=== PATIENT | male | born 1930 | race Caucasian/White ===

== ENCOUNTER 2018-05-13 09:37 | Observation (INO) | payer MEDICARE ==
--- NOTE | 2018-05-13 10:32 | ED ---
HPI Chest Pain - HPI Summary HPI Summary: This is scribe Cassie Abdias documenting for attending Tony Quezada MD. 87 year old M presenting to [facility] complains of two episodes of chest pain, each lasting one hour, described as an ache radiating to his left upper arm, once at 01:00 today and at 07:30 today. The patient rates the pain 1/10 in severity. Symptoms aggravated by nothing. Symptoms alleviated by nothing. Patient denies shortness of breath, nausea, and diaphoresis. Patient treated the pain with nitrox3 during the first episode, then was able to return to sleep. He woke up at 06:00, then pain returned at 07:30. Patient has cardiac hx. - History of Current Complaint Chief Complaint: EDChestPainROMI Time Seen by Provider: 05/13/18 10:00 Hx Obtained From: Patient Onset/Duration: Started Hours Ago - 01:00 today Timing: Intermittent, Lasting Hours - 1 Pain Intensity: 1 Pain Scale Used: 0-10 Numeric Chest Pain Radiates: Yes Chest Pain Radiates To:: Arm - left upper Character: Dull/Aching Aggravating Factor(s): Nothing Alleviating Factor(s): Nothing Associated Signs and Symptoms: Positive: Negative - shortness of breath, diaphoresis, nausea - Allergy/Home Medications Allergies/Adverse Reactions: Allergies Allergy/AdvReac Type Severity Reaction Status Date / Time cefazolin [From Anc] Allergy Rash Verified 05/13/18 09:42 Home Medications: Home Medications Aspirin EC TAB* [Ecotrin EC Low Dose 81 MG*] 81 mg PO QAM 05/13/18 [History Confirmed 05/13/18] C/Sourcherry/Celery/Grape Seed [Tart Foote Advanced] 1 cap PO QPM 05/13/18 [ History Confirmed 05/13/18] Cholecalciferol TAB* [Vitamin D TAB*] 1,000 unit PO QAM 05/13/18 [History Confirmed 05/13/18] Glucosam/Chond/Collagen/Hyalur [Glucosamine Chondroitin/C] 1 cap PO QPM [History Confirmed 05/13/18] LoraTADine TAB(NF) [Claritin 10 MG TAB(NF)] 10 mg PO QAM 05/13/18 [History Confirmed 05/13/18] Lovastatin(NF) [Mevacor(NF)] 20 mg PO QPM 05/13/18 [History Confirmed 05/13/18] Magnesium Oxide [Magnesium] 250 mg PO QAM 05/13/18 [History Confirmed 05/13/18] Multivitamins/Minerals TAB* [Theragran/minerals TAB*] 1 tab PO QPM 05/13/18 [ History Confirmed 05/13/18] Pantoprazole TAB (NF) [Protonix TAB (NF)] 40 mg PO QAM 05/13/18 [History Confirmed 05/13/18] Potassium 99 mg PO QAM 05/13/18 [History Confirmed 05/13/18] tiZANidine TAB* [Zanaflex TAB*] 2 mg PO QPM 05/13/18 [History Confirmed 05/13/18 ] PMH/Surg Hx/FS Hx/Imm Hx Previously Healthy: No Cardiovascular History: Reports: Hx Aneurysm - aortic, Hx Myocardial Infarction - in 2004, Other Cardiovascular Problems/Disorders - ascending aorta GI History: Reports: Hx Gastroesophageal Reflux Disease Sensory History: Reports: Hx Contacts or Glasses Opthamlomology History: Reports: Hx Contacts or Glasses - Surgical History Surgery Procedure, Year, and Place: Right knee replacement, hammer toe repair. cardiac stent x 2. - Immunization History Immunizations Up to Date: Yes Infectious Disease History: No Infectious Disease History: Denies: Traveled Outside the [place] in Last 30 Days - Family History Known Family History: Positive: Other - reviewed and non-contributory - Social History Alcohol Use: Weekly Hx Substance Use: No Substance Use Type: Reports: None Hx Tobacco Use: No Smoking Status (MU): Never Smoked Tobacco Review of Systems Negative: Skin Diaphoresis Positive: Chest Pain Negative: Shortness Of Breath Negative: Nausea All Other Systems Reviewed And Are Negative: Yes Physical Exam - Summary Physical Exam Summary: Appearance: The patient is well-nourished in no acute distress and in no acute pain. Skin: The skin is warm and dry and skin color reflects adequate perfusion. HEENT: The head is normocephalic and atraumatic. The pupils are equal and reactive. The conjunctivae are clear and without drainage. Nares are patent and without drainage. Mouth reveals moist mucous membranes and the throat is without erythema and exudate. The external ears are intact. The ear canals are patent and without drainage. The tympanic membranes are intact. Neck: The neck is supple with full range of motion and non-tender. There are no carotid bruits. There is no neck vein distension. Respiratory: Chest is non-tender. Lungs are clear to auscultation and breath sounds are symmetrical and equal. Cardiovascular: Heart is regular rate and rhythm. There is no murmur or rub auscultated. There is no peripheral edema and pulses are symmetrical and equal. Abdomen: The abdomen is soft and non-tender. There are normal bowel sounds heard in all four quadrants and there is no organomegaly palpated. Musculoskeletal: There is no back tenderness noted. Extremities are non-tender with full range of motion. There is good capillary refill. There is no peripheral edema or calf tenderness elicited. Neurological: Patient is alert and oriented to person, place and time. The patient has symmetrical motor strength in all four extremities. Cranial nerves are grossly intact. Deep tendon reflexes are symmetrical and equal in all four extremities. Psychiatric: The patient has an appropriate affect and does not exhibit any anxiety or depression. Triage Information Reviewed: Yes Vital Signs On Initial Exam: Initial Vitals Temp Pulse Resp BP Pulse Ox 98.8 F 58 16 143/97 95 05/13/18 09:38 05/13/18 09:38 05/13/18 09:38 05/13/18 09:38 05/13/18 09:38 Vital Signs Reviewed: Yes Diagnostics - Vital Signs Vital Signs Temp Pulse Resp BP Pulse Ox 05/13/18 09:38 98.8 F 58 16 143/97 95 - Laboratory Result Diagrams: 05/13/18 11:25 05/13/18 11:25 Lab Statement: Any lab studies that have been ordered have been reviewed, and results considered in the medical decision making process. - Radiology CXR Radiology Interpretation Completed By: Radiologist - NO ACTIVE CARDIOPULMONARY DISEASE. ED physician has reviewed this report. - CT Chest/Thorax CT Interpretation Completed By: Radiologist - 1. NO PULMONARY ARTERIAL FILLING DEFECT TO SUGGEST PULMONARY EMBOLISM. 2. 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 ED physician has reviewed this report. - EKG 0944 Cardiac Rate: Bradycardia - 54 BPM EKG Rhythm: Sinus Bradycardia EKG Interpretation: Horizontal axis. First degree block 1134 Cardiac Rate: Bradycardia - 56 BPM EKG Rhythm: Sinus Bradycardia EKG Interpretation: Horizontal axis. First degree block. Unchanged from earlier EKG 05/13/18 Chest Pain Course/Dx - Course Course Of Treatment: Mr. Gutierrez presented with intermittent episodes of chest pain. He has a history of stents for coronary artery disease as well as a known descending aortic aneurysm. He was worked up with troponin and EKG as well as other labs. These were all normal and a CTA of his chest was obtained to evaluate his aneurysm. There was no evidence for dissection or leaking and the hospitalist service was asked to evaluate him for continued chest pain. He had 2 more episodes of chest pain while in the department his EKG did not change. - Diagnoses Provider Diagnoses: Chest pain - Provider Notifications Discussed Care Of Patient With: Cody Hubbard Time Discussed With Above Provider: 13:35 Instructed by Provider To: Other - Dr. Hubbard, hospitalist, agrees to admit patient. Discharge - Sign-Out/Discharge Documenting (check all that apply): Patient Departure - Admit - Discharge Plan Condition: Stable Disposition: ADMITTED TO [facility] - Billing Disposition and Condition Condition: STABLE Disposition: Admitted to [facility]
--- NOTE | 2018-05-13 11:34 | RAD ---
HISTORY: CP, chest pain COMPARISONS: None VIEWS: 1: frontal portable view of the chest at 11:15 AM FINDINGS: LINES AND TUBES: None. CARDIOMEDIASTINAL SILHOUETTE: The cardiomediastinal silhouette is normal for portable technique. PLEURA: The costophrenic angles are sharp. No pleural abnormalities are noted. LUNG PARENCHYMA: The lungs are clear. ABDOMEN: The upper abdomen is clear. There is no subphrenic gas. BONES AND SOFT TISSUES: No bone or soft tissue abnormalities are noted. IMPRESSION: NO ACTIVE CARDIOPULMONARY DISEASE.
[2018-05-13 11:42] LABS: ABS Basophils 0 10^3/ul (0-0.2); ABS Eosinophils 0.1 10^3/ul (0-0.6); ABS Lymphocytes 1.4 10^3/ul (1.0-4.8); ABS Monocytes 0.4 10^3/ul (0-0.8); ABS Nucleated RBC 0 10^3/ul; Eosinophil % 2.5 % (0-6); Hematocrit 46 % (42-52); Hemoglobin 15.9 g/dl (14.0-18.0); Lymphocyte % 28.7 % (25-47); Mean Corpuscular HGB Conc 34 g/dl (31-36); Mean Corpuscular Hemoglobin 31 pg (27-31); Mean Corpuscular Volume 92 fL (80-94); Mean Platelet Volume 7.9 um3 (7.4-10.4); Nucleated Red Blood Cells % 0.1; Platelet Count 192 10^3/ul (150-450); Red Blood Count 5.05 10^6/ul (4.00-5.40); Red Cell Distribution Width 14 % (10.5-15); White Blood Count 4.9 10^3/ul (3.5-10.8)
[2018-05-13 11:52] LABS: INR 0.91 (0.77-1.02)
[2018-05-13 12:02] LABS: EGFR Non-African American 103.8 (>60)
[2018-05-13] MEDS ORDERED: Iohexol 350* (CONTRAST) 500 ML MDV IV ONE (13:10)
--- NOTE | 2018-05-13 13:27 | RAD ---
HISTORY: CP, chest pain COMPARISONS: None TECHNIQUE: Multiple contiguous axial CT scans of the chest were obtained after the administration of nonionic intravenous contrast, timed to the pulmonary arterial phase of contrast enhancement.. Coronal and sagittal multiplanar reformations are also submitted for review. FINDINGS: NECK AND THYROID: The lower neck and thyroid are unremarkable. CHEST WALL: There is no lower cervical, axillary, or supraclavicular lymphadenopathy by size criteria. HEART AND PERICARDIUM: Coronary and valvular cardiac calcifications are noted. AORTA AND PULMONARY VASCULATURE: There is no pulmonary arterial filling defect to suggest pulmonary embolism. Evaluation of the aorta is limited due to the phase of contrast administration. 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 MEDIASTINUM: There is no mediastinal lymphadenopathy by size criteria. MANDO: There is no hilar lymphadenopathy by size criteria. AIRWAY AND ESOPHAGUS: The airway is unremarkable, without endobronchial filling defect. The esophagus is grossly normal. LUNG PARENCHYMA: The lungs are clear. PLEURA: No pleural abnormalities are noted. UPPER ABDOMEN: Hepatic cysts are noted. BONES AND SOFT TISSUES: Mild degenerative changes are noted. There is a lipoma of the right subscapularis muscle. OTHER: None. IMPRESSION: 1. NO PULMONARY ARTERIAL FILLING DEFECT TO SUGGEST PULMONARY EMBOLISM. 2. 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
[2018-05-13] MEDS ORDERED: Nitroglycerin TAB 0.4 MG* 0.4 MG TAB ONE (14:29)
[2018-05-13] MEDS ORDERED: Nitroglycerin TAB 0.4 MG* 0.4 MG TAB SL ONE (14:31)
[2018-05-13] MEDS: Heparin VIAL(*) 5000 UNITS/ML VIAL (FIVE THOUSAND) SUBCUT SCH ×2 (15:39→21:27)
[2018-05-13] MEDS ORDERED: Atorvastatin* 10 MG TAB PO SCH (18:00)
[2018-05-13] MEDS ORDERED: Multivitamins/Minerals TAB PO SCH (18:00)
[2018-05-13] MEDS: Nitroglycerin TAB 0.4 MG* 0.4 MG TAB SL PRN ×2 (18:58→21:28)
--- NOTE | 2018-05-13 20:24 | HP ---
CC: Dr. Giovanni Min * HISTORY AND PHYSICAL: DATE OF ADMISSION: 05/13/18 PRIMARY CARE PROVIDER: Dr. Giovanni Min. ATTENDING PHYSICIAN: Dr. Cody Hubbard *(dictated by Eve Victor NP). CHIEF COMPLAINT: Chest pain. HISTORY OF PRESENT ILLNESS: Mr. 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 He noticed a left-sided chest discomfort. He had a left chest pain that radiated to his left arm. He took 3 nitros over a period of 30 minutes and his chest pain resolved and he went back to bed. The patient states that he woke at approximately 6:30 this morning, did a few things around his house and approximately an hour later, he developed return of the chest pain. This time, it was more lateral into his kind of left axillary area. Due to the recurrence of his chest pain, he called Dr. Min' office who recommended he come to the emergency room for further evaluation. The patient states that he has been in his usual state of health with no fevers , chills, shortness of breath, nausea, vomiting, diarrhea, abdominal pain. The patient states that recently he has noticed that he felt fatigued easily feeling as though he needed to take a nap in the evening. The patient denies any diaphoresis during the episode. He reports during his episodes of pain, it was a persistent pain and he rates it as a 3-4/10. He denies any lightheadedness or dizziness. The patient states this pain is less severe than during his previous MIs. While in the emergency room, the patient had 2 EKGs showing a sinus bradycardia and the rate in the 50s. There are no acute signs of ischemia and no previous EKGs for comparison. The patient had labs showing a troponin of 0.01. He had a chest x-ray showing no cardiopulmonary disease. He had a CT of his chest with no evidence of a PE. The patient had a recurrence of chest pain while in the emergency room that lasted for approximately 30 to 45 minutes. Hospitalists were asked to evaluate the patient for admission. PAST MEDICAL HISTORY: 1. Degenerative lumbar spondylosis. 2. Degenerative arthritis. 3. Esophageal stricture. 4. Coronary artery disease. 5. GERD. 6. Hyperlipidemia. PAST SURGICAL HISTORY: 1. Status post carpal tunnel release. 2. Status post debridement of an ulcer on his right foot. 3. Status post right inguinal hernia repair. 4. Status post cardiac catheterization x2, the first in 2004 with stent placed in his LAD and obtuse margin; in 2010, he had a stent replaced. 5. Status post right total knee arthroplasty. 6. Status post repair of a left hammertoe. MEDICATIONS: Home medications include: 1. Multivitamin 1 tablet oral daily. 2. Lovastatin 20 mg oral every evening. 3. Magnesium oxide 250 mg oral every morning. 4. Loratadine 10 mg oral every morning. 5. Glucosamine/chondroitin 1 capsule oral every evening. 6. Tart das advance 1 tablet oral evening. 7. Pantoprazole 40 mg oral every morning. 8. Vitamin D 1000 units oral every morning. 9. Potassium 99 mg oral every morning. 10. Aspirin 81 mg oral every morning. ALLERGIES: CEFAZOLIN and ENVIRONMENTAL. FAMILY HISTORY: The patient denies any family history of coronary artery disease, diabetes mellitus, or cancer. The patient's father passed in his 40s from an accident and his mother passed at age 95 from old age. SOCIAL HISTORY: The patient is a former smoker smoking in his 20s. He reports drinking 1 beer most days. He denies recreational drug use. His son, Roger Gutierrez, will be his surrogate decision maker in the event he is unable to make decisions for himself. REVIEW OF SYSTEMS: I performed an 11-point review of systems. All the pertinent positives and negatives are mentioned in the history of present illness. The remaining review of systems are negative. PHYSICAL EXAMINATION GENERAL APPEARANCE: The patient is alert, pleasant and appears to be in no acute distress. VITAL SIGNS: Temperature 98.8, heart rate 60, respiratory rate 14, O2 sat 93% on room air, blood pressure 147/86. HEENT: Normocephalic, atraumatic. Pupils are equal and reactive to light. Extraocular movements are intact. RESPIRATORY: There is no accessory muscle use. Lungs are clear to auscultation bilateral. CARDIOVASCULAR: Regular rate and rhythm. S1 and S2 present. There are no murmurs, rubs, or gallops heard. ABDOMEN: Soft, nontender, nondistended. There are bowel sounds present x4. EXTREMITIES: There is no lower extremity edema. DP and PT pulses are 1+ and symmetric. MUSCULOSKELETAL: There is no clubbing or cyanosis noted. The patient exhibits good strength in all extremities. NEUROLOGIC: The patient is alert and oriented x4. Cranial nerves II through XII are grossly intact. PSYCHOLOGICAL: The patient is calm and cooperative. SKIN: There are no rashes or abnormalities seen. DIAGNOSTIC STUDIES/LAB DATA: Sodium 138, potassium 3.7, chloride 105, CO2 of 26, BUN 16, creatinine 0.72, and glucose 101. White blood cell count 4.9, hemoglobin 15.9, hematocrit 46, and platelet count 192. Troponin 0.01. EKG at 9:44 shows a sinus bradycardia with a rate of 54. Repeat EKG at 11:34 shows a sinus bradycardia at a rate of 56. There are no acute signs of ischemia on either one of these. There were no previous EKGs for comparison. Chest x-ray from today. Radiologist's impression: No active cardiopulmonary disease. Chest CTA from today. Radiologist's impression: No pulmonary arterial filling defect to suggest pulmonary embolism. 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 IMPRESSION: Mr. Gutierrez is an 87-year-old male with past medical history significant for coronary artery disease, status post cardiac stenting x3; hyperlipidemia; gastroesophageal disease; esophageal stricture, who presented to the emergency room with complaints of chest pain. The patient will be admitted as an observation to rule out acute coronary syndrome. ASSESSMENT/PLAN: 1. Chest pain. The patient will be admitted as an observation to rule out acute coronary syndrome. He will be monitored on telemetry. We will trend his troponin every 3 hours for 2 more times. His initial troponin is 0.01. The patient's ENRRIQUE score is 2. The patient reports having a cardiac stress test in [place] in the spring. We will try to obtain this record. If I am able to this and there were no significant findings, I will hold off on stress test at this time. If I am unable to get hold of these records or there were abnormalities, we will repeat a stress test. The patient may benefit from having a cone chocolate dipper here in [place] as he spends half of the year here. The patient will be continued on his baby aspirin. We will check fasting lipids in the morning. 2. History of coronary artery disease. The patient is not currently on a beta - isaac. We will continue him on a statin and aspirin. 3. Fluids, electrolytes, and nutrition. The patient will be on a heart- healthy diet. In the event if he has a stress test tomorrow, we will have him be n.p.o. after midnight 4. Code status. Full code. He did have a MOLST form completed and placed in the chart. 5. DVT prophylaxis. He is at high risk and will have subcu heparin. 6. Disposition. Observation. TIME SPENT: Time for this admission was approximately 60 minutes, greater than half of that with the patient and family discussing medications, past medical history, the events leading up to his arrival today, performing a physical examination and completing a MOLST form. The case has been reviewed with the attending, Dr. Hubbard, who agrees with the plan of care. EVE VICTOR, AMAURI [id number]/CPS #: [id number] YUNIOR
[2018-05-14] MEDS: Nitroglycerin TAB 0.4 MG* 0.4 MG TAB SL PRN (00:23)
[2018-05-14] MEDS: Heparin VIAL(*) 5000 UNITS/ML VIAL (FIVE THOUSAND) SUBCUT SCH ×2 (05:33→14:37)
[2018-05-14] MEDS ORDERED: Omeprazole CAP* 20 MG PO SCH (07:30)
[2018-05-14] MEDS ORDERED: Cholecalciferol TAB* 1000 UNITS PO SCH (09:00)
[2018-05-14] MEDS ORDERED: Aspirin EC TAB* 81 MG TAB.EC PO SCH (09:00)
[2018-05-14 13:11] VITALS: BP 137/74
--- NOTE | 2018-05-14 13:41 | RAD ---
HISTORY: chest pain, shortness of breath, previous angioplasty, previous RI COMPARISONS: None TECHNIQUE: A 1 day stress/rest myocardial perfusion study was performed, with exercise stress. The exercise portion was performed using the Michel protocol, for a total METs of 10.1. The stress portion was monitored by Dr. Kaye. Gated SPECT imaging was performed, with CT-based attenuation correction DOSE: Stress: Technetium 99m tetrofosmin, 25.48 millicuries, injected at 12:25 PM on May 14, 2018 Rest: Technetium 99m tetrofosmin, 10.99 millicuries, injected at 6:25 AM on May 14, 2018 Pharmacologic agent: None FINDINGS: CARDIAC MONITORING: Peak heart rate of 135 bpm, 101% of predicted. EF: 57% TID: 0.85 MOTION: There is septal hypokinesia. PERFUSION: There are no definite fixed or reversible perfusion defects. OTHER: None IMPRESSION: NO DEFINITE FIXED OR REVERSIBLE PERFUSION DEFECTS. ASSESSMENT: LOW RISK. Based on imaging criteria from ACC/AHA 2002. Guideline Update for the Management of Patient's with Chronic Stable Angina, table 23. Noninvasive Risk Stratification.
--- NOTE | 2018-05-14 13:41 | RAD ---
HISTORY: chest pain, shortness of breath, previous angioplasty, previous CA COMPARISONS: None TECHNIQUE: A 1 day stress/rest myocardial perfusion study was performed, with exercise stress. The exercise portion was performed using the Michel protocol, for a total METs of 10.1. The stress portion was monitored by Dr. Kaye. Gated SPECT imaging was performed, with CT-based attenuation correction DOSE: Stress: Technetium 99m tetrofosmin, 25.48 millicuries, injected at 12:25 PM on May 14, 2018 Rest: Technetium 99m tetrofosmin, 10.99 millicuries, injected at 6:25 AM on May 14, 2018 Pharmacologic agent: None FINDINGS: CARDIAC MONITORING: Peak heart rate of 135 bpm, 101% of predicted. EF: 57% TID: 0.85 MOTION: There is septal hypokinesia. PERFUSION: There are no definite fixed or reversible perfusion defects. OTHER: None IMPRESSION: NO DEFINITE FIXED OR REVERSIBLE PERFUSION DEFECTS. ASSESSMENT: LOW RISK. Based on imaging criteria from ACC/AHA 2002. Guideline Update for the Management of Patient's with Chronic Stable Angina, table 23. Noninvasive Risk Stratification.
== END 2018-05-14 15:15 | disposition home or self-care (01) ==
LOC: ED 09:37 → MEDTELE 15:02
PROVIDERS: ADMIT Internal Medicine; ATTEND Internal Medicine
DX: R07.9 Chest pain, unspecified (principal); M47.896 Other spondylosis, lumbar region; M19.90 Unspecified osteoarthritis, unspecified site; K22.2 Esophageal obstruction; I25.10 Atherosclerotic heart disease of native coronary artery without angina pectoris; K21.9 Gastro-esophageal reflux disease without esophagitis; E78.5 Hyperlipidemia, unspecified; Z79.82 Long term (current) use of aspirin
CPT/HCPCS: 36415; 71045; 71275; 78452; 80053; 80061; 83605; 84484; 85025; 85610; 93005; 93017; 99283; A9270-GY; A9502; G0378; J1644; Q9967

== ENCOUNTER 2018-06-14 12:32 | Observation (INO) | payer MEDICARE ==
--- OUTSIDE RECORDS SUMMARY | 2018-06-14 12:54 | XMS REPORT ---
:1930 External Reference #:[id number] [facility] Address [address] [address] Phone [phone] Care Team Providers Name Role Phone Giovanni Min MD Primary Care Physician Unavailable Payers Type Date Identification Numbers Payment Provider Subscriber Medicare Primary Effective: Policy Number: Medicare Tony Gutierrez 1995 [id number] PayID: [id number] [address] [place] [address] [facility] Part B Policy Number: [id number] [facility] Tony Gutierrez (Oon) PayID: [id number] [address] [place] [address] Problems Description No Information Family History Date Family Member(s) Problem(s) Comments : (age 46 Father due to Smoke inhalation Years) : (age 95 Mother due to Stroke Years) : (age 85 Paternal Grandfather due to Unknown Years) Causes : (age 65 Maternal Grandfather due to [place] Years) : (age 85 Maternal Grandmother due to Unknown Years) Causes Social History Type Date Description Comments Marital Status Lives With Spouse Occupation E[employer] Cigarette Use Former Cigarette Smoker 1 Pack pt smoked for 8 years quit Daily 48 years sgo ETOH Use Consumes 1 beer per day Recreational Drug Use Denies Drug Use Smoking Patient is a former smoker Daily Caffeine Consumes on average 1 cup of regular coffee per day Daily Caffeine Consumes on average 1 soda per day Exercise Type/Frequency Exercises regularly Allergies, Adverse Reactions, Alerts Date Description Reaction Status Severity Comments 07/02/2008 Ancef active rash 06/05/2018 Crestor active myalgias Medications Medication Date Status Form Strength Qnty SIG Indications Ordering Provider Nitroglycerin 06/05/ Active Tablets 0.4mg 25tab 1 sl q5mins I25.10 Murray Quezada 2018 Sub s x3 as needed Calixto, for chest DO FACC pain Protonix 07/06/ Active Tablets DR 40mg 100ta 1 po qd Tarik 2008 russell Maldonado M.D. Vit C 07/02/ Active 500mg one po qd Tarik 2007 Tea Maldonado M.D. Glucosamine-Cho 07/02/ Active Capsules 2 po qd Tarik ndroitin 2007 Tea Maldonado M.D. Aspir-81 07/02/ Active Tablets DR 81mg 1 PO qd Tarik 2007 Tea Maldonado M.D. Toprol XL 07/02/ Active Tablets ER 25mg 1 PO qd Tarik 2007 24HR Tea Maldonado M.D. Fexofenadine 07/02/ Active Tablets 60mg 180ta 1 PO bid prn Tarik HCL 2007 russell Maldonado M.D. Potassium / Active Tablets 99mg 1 by mouth Unknown 0000 daily Esomeprazole / Active Capsules 40mg 1 by mouth Unknown Magnesium 0000 DR every day Loratadine / Active Capsules 10mg once a day Unknown 0000 for allergies as needed Vitamin D3 / Active Capsules 1000Unit 1 by mouth Unknown 0000 every day Magnesium // Active Tablets 250mg 1 by mouth Unknown 0000 every day Losartan / Active Tablets 25mg 1 by mouth Unknown Potassium 0000 every day Tart Foote / Active Capsules Unknown Advanced 0000 Glucosamine / Active Capsules 1500Com take one Unknown Chondroitin 0000 capsule/tabl 1500 Complex et daily by Maximum mouth Strength Lovastatin / Active Tablets 20mg take 1 Unknown 0000 tablet at bedtime Multivitamin / Active Tablets Adlt 50+ once a day Unknown Adults 50+ 0000 Super B-50 / Active Tablets Unknown 0000 Crestor 09/15/ Hx Tablets 5mg 1 po 3x week Tarik 2008. 11/04/ Suresh Maldonado M.D. Crestor 08/05/ Hx Tablets 5mg 90tab 1 po biw Tarik 2008 - s F. 08/25/ Joel, 2008 Mansoor Plavix 08/05/ Hx Tablets 75mg 1 po qod Tarik 2008 - until . 08/13/09 and Joel 2008 then Mansoor discontinue Welchol 07/02/ Hx Tablets 625mg 120ta one tid Tarik 2007 - bs F. 05/28/ Joel, 2008 Mansoor Plavix 07/02/ Hx Tablets 75mg 1 PO qd Tarik 2007 - . 08/05/ ben, 2008 Mansoor Nexium 07/02/ Hx Capsules 40mg 90cap 1 PO qd Tarik 2007 - DR s . 07/06/ marielena, 2008 Mansoor Diovan 07/02/ Hx Tablets 160mg 90tab 1 PO qd Tarik 2007 - s . 05/28/ ben, 2008 Mansoor Famciclovir / Hx Tablets 500mg one tid Unknown 0000 - 2008 Crestor / Hx Tablets 5mg 30tab 1 po qd Unknown 0000 - s 2008 Vital Signs Date Vital Result Comment 06/05/2018 Weight 158.00 lb with shoes Heart Rate 52 /min BP Systolic 120 mmHg Rue reg cuff BP Diastolic 72 mmHg Rue reg cuff BP Systolic Sitting 120 mmHg Lue reg cuff BP Diastolic Sitting 70 mmHg Lue reg cuff BP Systolic Standing 116 mmHg Lue reg cuff BP Diastolic Standing 68 mmHg Lue reg cuff Respiratory Rate 16 /min 08/05/2009 Weight 167.50 lb Heart Rate 62 /min BP Systolic Sitting 130 mmHg BP Diastolic Sitting 70 mmHg 05/28/2009 Weight 168.00 lb Heart Rate 66 /min BP Systolic Sitting 130 mmHg BP Diastolic Sitting 78 mmHg Respiratory Rate 16 /min 07/27/2008 Height 69 inches 5'9" Weight 169.00 lb Heart Rate 62 /min BP Systolic Sitting 120 mmHg L BP Diastolic Sitting 80 mmHg L BMI (Body Mass Index) 25.0 kg/m2 07/02/2008 Height 69 inches 5'9" Weight 170.00 lb Heart Rate 59 /min BP Systolic Sitting 120 mmHg L BP Diastolic Sitting 8 mmHg L BMI (Body Mass Index) 25.1 kg/m2 Results Test Date Test Result H/L Range Note CBC With Manual Diff 07/19/2009 White Blood Count 5.3 CUMM 4.8-10.8 1 Red Cell Count 5.32 CUMM 4.6-6.2 1 Hemoglobin 16.5 g/dL 14.0-18.0 1 Hematocrit 49 % 42-52 1 Mean Corpuscular Volume 92 um3 80-94 1 Mean Corpuscular Hemoglob 31 pg 27-31 1 Mean Corpuscular HGB Cone 34 g/dL 32-36 1 Redcell Distribution WDTH 14 % 10.5-15 1 Platelet Count 207 CUMM 150-450 1 Mean Platelet Volume 8.0 um3 7.4-10.4 1 Polysegmented Neutrophil 51 % 38-83 1 Band Neutrophil 2 % 0-8 1 Lymphocyte 25 % 25-47 1 Monocyte 11 % 0-13 1 Eosenophil 8 % High 0-6 1 Atypical Lymph 3 % 0-6 1 Absolute Neutrophil Count 2.8 1 RBC Morphology NORMAL 1 Protime 07/19/2009 Inr 0.95 0.86-1.13 1, 2 Protime 11.6 SEC 10.7-13.6 1, 3 Laboratory test finding 07/19/2009 PTT (Aptt) 37.9 25.15-38.53 1, 4 Comp Metabolic Panel 07/19/2009 Sodium 141 mmol/L 135-145 1 Potassium 4.6 mmol/L 3.5-5.0 1 Chloride 107 mmol/L 101-111 1 Co2 (Carbon Dioxide) 30.0 mmol/L 22-32 1 Anion Gap 4.0 mmol/L 2-11 1, 5 Glucose 95 mg/dL 70-100 1, 6 BUN 13 mg/dL 6-24 1 Creatinine 0.90 mg/dL 0.50-1.40 1 One Over Creatinine 1.10 1 BUN/Creatinine Ratio 14.4 8-20 1 Calcium 9.1 mg/dL 8.1-9.9 1, 7 Total Protein 6.6 GM/DL 6.2-8.1 1 Albumin 4.0 GM/DL 3.2-5.2 1 Globulin 2.6 GM/DL 2-4 1 Albumin/Globulin Ratio 1.5 1-3 1 Bilirubin Total 0.9 mg/dL 0.4-1.5 1, 8 Alkaline Phosphatase 60 U/L 39-117 1 Alt (SGPT) 30 U/L 17-63 1 Ast (Sgot) 33 U/L 12-42 1 eGFR Non- 87.2 > 60 1 eGFR 105.5 > 60 1, [address] HUERTA AT FAX NUMBER [phone] 2 Recommended INR for Patients on Oral Anticoagulants Prophylaxis 2.0 - 3.0 Treatment of thrombosis 2.0 - 3.0 Prevention of embolism 2.0 - 3.0 Prevention of embolism from prosthetic heart valves 2.5 - 3.5 3 ATTENTION EFFECTIVE 03/03/09, THE IMPLEMENTATION OF NEW COAGULATION ANLAYZERS HAS CAUSED A SIGNIFICANT DIFFERENCE FOR PROTIME RESULTS IN SECONDS. THEREFORE, DIAGNOSIS,TREATMENT,AND THERAPY MUST BE BASED ON THE INR VALUE ONLY. 4 PLEASE NOTE NEW REFERENCE RANGE EFFECTIVE 09. 5 Anion gap measurement may be of limited value in the presence of any alkalosis, especially in a combined acid base disorder. . 6 Note change in reference range as of 06/11/08. The change was based on recommendations from the [place] [employer] [employer]. 7 Please note change in reference range effective 08 . 8 A metabolite of Naproxen, O-desmethylnaproxen, has been shown to interfere with the Jendrassik-Pala method for measuring total bilirubin. Samples from patients who have taken Naproxen have shown spurious elevation in total bilirubin levels. 9 Because ethnic data is not always readily available, this report includes an eGFR for both -Americans and non- Americans. The National Kidney Disease Education Program (NKDEP) does not endorse the use of the MDRD equation for patients that are not between the ages of 18 and 70, are , have extremes of body size, muscle mass, or nutritional status, or are non- or non-. According to the National Kidney Foundation, irrespective of diagnosis, the stage of the disease is based on the level of kidney function: Stage Description GFR(mL/min/1.73 m(2)) 1 Kidney damage with normal or decreased GFR 90 2 Kidney damage with mild decrease in GFR 60-89 3 Moderate decrease in GFR 30-59 4 Severe decrease in GFR 15-29 5 Kidney failure <15 (or dialysis) Procedures Date CPT Code Description Status 06/05/2018 17815 EKG Tracing & Interpretation Completed 05/14/2018 48542 Treadmill Interp/Report Only Completed 05/14/2018 01750 Stress Test Supervsn W/Out I/R Completed 07/06/2009 00611 ECHO Stress Test Incl Perf Contiuous ekg Monitoring Completed W/Phys Superv 05/28/2009 96663 EKG Tracing & Interpretation Completed 07/27/2008 99446 EKG Tracing & Interpretation Completed 07/02/2008 78494 EKG Tracing & Interpretation Completed Encounters Type Date Location Provider CPT E/M Dx Office Visit 06/05/2018 [facility] [place] [address] I25.10 9:30a [facility] FACC Office Visit 08/05/2009 [facility] Tarik Maldonado [address] 786.50 4:00p Mansoor 414.01 272.0 Office Visit 07/06/2009 9:30a [facility] Tarik Maldonado M.D. 02537 272.0 414.01 786.50 Office Visit 07/06/2009 9:15a [facility] ECHO Schedule 01301 272.0 414.01 786.50 Office Visit 05/28/2009 9:20a [facility] Tarik Maldonado M.D. 32732 272.0 414.01 786.50 Office Visit 07/27/2008 2:20p [facility] Tarik Maldonado M.D. 74642 272.0 414.01 786.50 Office Visit 07/02/2008 10:20a [facility] Tarik Maldonado M.D. 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 Gutierrez at [facility] in [place], [place]. Please make copy of patients records and scan into medent f/u 1 year
[2018-06-14] MEDS ORDERED: NS 0.9% 1000 ML* 1,000 ML IV ONE (14:39)
[2018-06-14 15:07] LABS: Urine Appearance Clear; Urine Blood Negative (Negative); Urine Color Amber; Urine Ketones Trace (Negative); Urine Protein 1+(30 mg/dL) (Negative); Urine Red Blood Cell 3+(>10/hpf) (Absent); Urine Urobilinogen Negative (Negative); Urine White Blood Cell Trace(0-5/hpf) (Absent)
[2018-06-14 15:27] LABS: ABS Basophils 0 10^3/ul (0-0.2); ABS Eosinophils 0 10^3/ul (0-0.6); ABS Lymphocytes 1.1 10^3/ul (1.0-4.8); ABS Monocytes 0.6 10^3/ul (0-0.8); ABS Neutrophils 2.9 10^3/ul (1.5-7.7); ABS Nucleated RBC 0 10^3/ul; Eosinophil % 0.4 % (0-6); Hematocrit 45 % (42-52); Hemoglobin 15.1 g/dl (14.0-18.0); Lymphocyte % 24.3 % (25-47); Mean Corpuscular HGB Conc 34 g/dl (31-36); Mean Corpuscular Hemoglobin 31 pg (27-31); Mean Corpuscular Volume 92 fL (80-94); Mean Platelet Volume 7.3 um3 (7.4-10.4); Nucleated Red Blood Cells % 0.2; Platelet Count 152 10^3/ul (150-450); Red Blood Count 4.86 10^6/ul (4.00-5.40); Red Cell Distribution Width 14 % (10.5-15); White Blood Count 4.7 10^3/ul (3.5-10.8)
--- NOTE | 2018-06-14 15:34 | RAD ---
HISTORY: PENA COMPARISONS: None TECHNIQUE: Multiple contiguous axial CT scans were obtained of the head without intravenous contrast. FINDINGS: HEMORRHAGE/INFARCT: There is no hemorrhage or acute infarct. MASSES/SHIFT: There is no mass or shift. EXTRA-AXIAL SPACES: There is prominence of the extra axial spaces bilaterally along the frontal convexities that is isointense to CSF. SULCI AND VENTRICLES: There is mild diffuse and proportional enlargement of the sulci and ventricles. CEREBRUM: There are no focal parenchymal abnormalities. BRAINSTEM: There are no focal parenchymal abnormalities. CEREBELLUM: There are no focal parenchymal abnormalities. VESSELS: The vessels are grossly normal. PARANASAL SINUSES: The paranasal sinuses are clear. ORBITS: The orbits are unremarkable. BONES AND SOFT TISSUE: No bone or soft tissue abnormalities are noted. 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 NO ACUTE INTRACRANIAL PATHOLOGY
--- NOTE | 2018-06-14 15:36 | RAD ---
HISTORY: pain COMPARISONS: None TECHNIQUE: Multiple contiguous axial CT scans were obtained of the cervical spine without intravenous contrast, with coronal and sagittal multiplanar reformations. FINDINGS: BRAIN: The visualized brain is unremarkable CENTRAL CANAL: Evaluation of the central canal is limited on CT technique; however, there is no obvious canalicular mass or epidural hemorrhage. ALIGNMENT: There is trace anterolisthesis of C5 on C6. VERTEBRAL BODIES: There is no displaced fracture. Is multilevel anterolateral marginal osteophyte formation. JOINTS: There is uncovertebral and facet osteoarthritis. There is osteoarthritis of the atlantoaxial articulation. MUSCULATURE: Unremarkable INTERVERTEBRAL DISCS: There is diffuse loss of intervertebral disc height. AXIAL IMAGES: C2-C3: There is right greater than left uncovertebral hypertrophy. There is mild right neuroforaminal narrowing. There is no osseous central canal stenosis C3-C4: There is no osseous neural foraminal narrowing or central canal stenosis. C4-C5: There is bilateral uncovertebral and facet hypertrophy. There is moderate to severe left neural foraminal narrowing. There is no significant central canal stenosis. C5-C6: There is left greater than right uncovertebral and facet hypertrophy. There is mild bilateral neuroforaminal narrowing. There is no significant central canal stenosis. C6-C7: There is no osseous neural foraminal narrowing or central canal stenosis. C7-T1: There is no osseous neural foraminal narrowing or central canal stenosis. SOFT TISSUES: The visualized soft tissues of the neck are unremarkable. The prevertebral fat stripe is preserved. OTHER: None. IMPRESSION: 1. DEGENERATIVE DISC DISEASE AND OSTEOARTHRITIS. 2. THERE IS MULTILEVEL NEUROFORAMINAL NARROWING DESCRIBED ABOVE. THERE IS NO SIGNIFICANT CENTRAL CANAL STENOSIS. 3. NO ACUTE OSSEOUS INJURY TO THE CERVICAL SPINE.
[2018-06-14 15:39] LABS: INR 0.93 (0.77-1.02)
--- NOTE | 2018-06-14 15:39 | RAD ---
Indication: Back pain. CT of the thoracic spine was obtained in the axial plane. Sagittal and coronal reconstructed images were obtained. The vertebral bodies appear normal in height. No evidence of compression fracture is noted. There is vacuum disc phenomenon T10-T11 with spondylytic ridge. No foraminal stenosis is noted. At L1-L2 and T12-L1 no disc protrusion is identified. IMPRESSION: Degenerative disc disease at T10-T11. No fracture is noted.
[2018-06-14 15:43] LABS: EGFR Non-African American 75.3 (>60)
--- NOTE | 2018-06-14 15:57 | RAD ---
Indication: Chest pain. Single frontal view of the chest performed at 1534 hours was reviewed. Comparison is made with previous exam dated May 13, 2018. No mediastinal shift is noted. Heart is of normal size and configuration. Lung vicente appear clear. IMPRESSION: NO ACTIVE CARDIOPULMONARY DISEASE IS NOTED.
[2018-06-14] MEDS ORDERED: traMADol TAB* 50 MG PO ONE (16:24)
[2018-06-14] MEDS ORDERED: Metoclopramide IV* 5 MG/ML 2 ML VIAL IV ONE (16:26)
[2018-06-14] MEDS ORDERED: Magnesium Hydroxide LIQ* 30 ML UDC PO PRN (17:14)
[2018-06-14] MEDS ORDERED: Al Hydrox/Mg Hydrox/Simet LIQ* 30 ML UDC PO PRN (17:14)
[2018-06-14] MEDS ORDERED: Ondansetron INJ* 2 MG/ML VIAL IV PRN (17:14)
[2018-06-14] MEDS ORDERED: Docusate CAP* 100 MG PO PRN (17:14)
[2018-06-14] MEDS ORDERED: Albuterol 2.5 MG/3 ML NEB.SOL* (0.083%) INH PRN (17:14)
[2018-06-14] MEDS ORDERED: oxyCODONE/Acetamin 5/325 MG* TAB PO PRN (17:14)
[2018-06-14] MEDS ORDERED: Morphine INJ* 2 MG/ML 1 ML SYRINGE (TWO MG - NEW SYRINGE VERSION) IV PRN (17:14)
[2018-06-14] MEDS ORDERED: Nitroglycerin TAB 0.4 MG* 0.4 MG TAB SL PRN (17:17)
[2018-06-14] MEDS ORDERED: Cyclobenzaprine TAB* 10 MG PO PRN (17:19)
[2018-06-14] MEDS ORDERED: Atorvastatin* 10 MG TAB PO SCH (18:00)
[2018-06-14] MEDS ORDERED: tiZANidine TAB* 2 MG PO SCH (18:00)
[2018-06-14] MEDS ORDERED: Multivitamins/Minerals TAB PO SCH (18:00)
--- NOTE | 2018-06-14 18:18 | ED ---
Neck Pain - HPI Summary HPI Summary: Patient is a 87 y/o M w/ c/o neck and shoulder pain for he past 5 days. He was referred to ED by PCP. Pt says he has taken tylenol, ibuprofen, arthritis meds and nothing is helping. Pt says Sx are worse at night and he also has been sweating at night. On triage, pain is rated 3/10 and nothing is noted to aggravate/alleviate Sx. He denies chest pain. He denies presence of rashes but notes he has been working outside building a cabin with his son. He is unsure if he had fever. He states he measured his pulse and noted it jumped from 60s to 70-80s. He reports neck pain is aggravated by pain. He denies Hx of HTN and diabetes. He denies abdominal pain but notes PENA on and off for past few days as well. He is not photophobic, denies N/V. He notes he has been experiencing aches all over his body. - History of Current Complaint Chief Complaint: EDNeckComplaint Stated Complaint: FLU LIKE SYMPTOMS Time Seen by Provider: 06/14/18 14:13 Hx Obtained From: Patient Onset/Duration Of Injury/Symptoms: Days - 5 days ago Timing: Constant, Lasting Days - onset 5 days ago Severity Currently: Mild - 3/10 Pain Intensity: 3 Pain Scale Used: 0-10 Numeric - 3/10 Location: Discrete At: - back of neck Aggravating Factors: Nothing Alleviating Factors: Nothing Associated Signs & Symptoms: Positive: Fever - unsure of fever, Headache - Allergies/Home Medications Allergies/Adverse Reactions: Allergies Allergy/AdvReac Type Severity Reaction Status Date / Time cefazolin [From [facility]] Allergy Rash Verified 05/13/18 09:42 PMH/Surg Hx/FS Hx/Imm Hx Endocrine/Hematology History: Denies: Hx Diabetes Cardiovascular History: Reports: Hx Aneurysm - aortic, Hx Angina, Hx Coronary Artery Disease, Hx Myocardial Infarction - in 2004, Other Cardiovascular Problems/Disorders - ascending aorta Denies: Hx Hypercholesterolemia, Hx Hypertension, Hx Valvular Heart Disease Respiratory History: Denies: Hx Asthma, Hx Chronic Obstructive Pulmonary Disease (COPD) GI History: Reports: Hx Gastroesophageal Reflux Disease Sensory History: Reports: Hx Contacts or Glasses Denies: Hx Hearing Aid Opthamlomology History: Reports: Hx Contacts or Glasses - Surgical History Surgery Procedure, Year, and Place: Right knee replacement, hammer toe repair. cardiac stent x 2. Infectious Disease History: No Infectious Disease History: Denies: Hx Clostridium Difficile, Hx Hepatitis, Hx Human Immunodeficiency Virus (HIV), Hx of Known/Suspected MRSA, Hx Shingles, Hx Tuberculosis, History Other Infectious Disease, Traveled Outside the [place] in Last 30 Days - Family History Known Family History: Positive: Other - reviewed and non-contributory - Social History Alcohol Use: Weekly Hx Substance Use: No Substance Use Type: Reports: None Hx Tobacco Use: No Smoking Status (MU): Former Smoker Type: Cigarettes Length of Time of Smoking/Using Tobacco: 6-10 yrs Have You Smoked in the Last Year: No Review of Systems Positive: Fever - unsure of fever , Skin Diaphoresis Negative: Photophobia Positive: Other - increased pulse rate . Negative: Chest Pain Negative: Abdominal Pain, Vomiting, Nausea Positive: Other - neck pain and shoulder pain bilaterally; aches over body Negative: Rash Positive: Headache - on and off All Other Systems Reviewed And Are Negative: Yes Physical Exam - Summary Physical Exam Summary: GENERAL: Patient is a well developed and nourished male who is lying comfortable in the stretcher. Patient is not in any acute respiratory distress. HEAD AND FACE: Normocephalic EYES: PERRLA, EOMI x 2. MOUTH: Oropharynx within normal limits. NECK: Supple, trachea is midline, no adenopathy, no JVD, no carotid bruit.Thoracic spine tenderness is noted. CHEST: Symmetric, no tenderness at palpation LUNGS: Clear to auscultation bilaterally. No wheezing or crackles. CVS: Regular rate and rhythm, S1 and S2 present, no murmurs or gallops appreciated. ABDOMEN: Soft, non-tender. Bowel sounds are normal. No abdominal abnormal pulsations. EXTREMITIES: Full ROM in all major joints, no edema, no cyanosis or clubbing. NEURO: Alert and oriented x 3. No acute neurological deficits. Speech is normal and follows commands. SKIN: Dry and warm Triage Information Reviewed: Yes Vital Signs On Initial Exam: Initial Vitals Temp Pulse Resp BP Pulse Ox 98.9 F 80 16 103/62 96 06/14/18 12:42 06/14/18 12:42 06/14/18 12:42 06/14/18 12:42 06/14/18 12:42 Vital Signs Reviewed: Yes Diagnostics - Vital Signs Vital Signs Temp Pulse Resp BP Pulse Ox 06/14/18 12:42 98.9 F 80 16 103/62 96 - Laboratory Lab Results: Lab Results 06/14/18 06/14/18 06/14/18 Range/Units 14:53 14:53 14:53 WBC 4.7 (3.5-10.8) 10^3/ul RBC 4.86 (4.00-5.40) 10^6/ul Hgb 15.1 (14.0-18.0) g/dl Hct 45 (42-52) % MCV 92 (80-94) fL MCH 31 (27-31) pg MCHC 34 (31-36) g/dl RDW 14 (10.5-15) % Plt Count 152 (150-450) 10^3/ul MPV 7.3 L (7.4-10.4) um3 Neut % (Auto) 61.9 (38-83) % Lymph % (Auto) 24.3 L (25-47) % [place] % (Auto) 12.8 H (0-7) % Eos % (Auto) 0.4 (0-6) % Baso % (Auto) 0.6 (0-2) % Absolute Neuts (auto) 2.9 (1.5-7.7) 10^3/ul Absolute Lymphs (auto) 1.1 (1.0-4.8) 10^3/ul Absolute Monos (auto) 0.6 (0-0.8) 10^3/ul Absolute Eos (auto) 0 (0-0.6) 10^3/ul Absolute Basos (auto) 0 (0-0.2) 10^3/ul Absolute Nucleated RBC 0 10^3/ul Nucleated RBC % 0.2 ESR 14 (0-40) mm/Hr INR (Anticoag Therapy) 0.93 (0.77-1.02) APTT 38.6 H (26.0-36.3) seconds Sodium (135-145) mmol/L Potassium (3.5-5.0) mmol/L Chloride (101-111) mmol/L Carbon Dioxide (22-32) mmol/L Anion Gap (2-11) mmol/L BUN (6-24) mg/dL Creatinine (0.67-1.17) mg/dL Est GFR ( Amer) (>60) Est GFR (Non-Af Amer) (>60) BUN/Creatinine Ratio (8-20) Glucose (70-100) mg/dL Lactic Acid (0.5-2.0) mmol/L Calcium (8.6-10.3) mg/dL Total Bilirubin (0.2-1.0) mg/dL AST (13-39) U/L ALT (7-52) U/L Alkaline Phosphatase (34-104) U/L Troponin I (<0.04) ng/mL C-Reactive Protein (<8.01) mg/L Total Protein (6.4-8.9) g/dL Albumin (3.2-5.2) g/dL Globulin (2-4) g/dL Albumin/Globulin Ratio (1-3) Urine Color Mary Urine Appearance Clear Urine pH 5.0 (5-9) Ur Specific [place] 1.030 (1.010-1.030) Urine Protein 1+(30 mg/dl) A (Negative) Urine Ketones Trace A (Negative) Urine Blood Negative (Negative) Urine Nitrate Negative (Negative) Urine Bilirubin Negative (Negative) Urine Urobilinogen Negative (Negative) Ur Leukocyte Esterase Negative (Negative) Urine WBC (Auto) Trace(0-5/hpf) (Absent) Urine RBC (Auto) 3+(>10/hpf) A (Absent) Urine Bacteria Absent (Absent) Urine Glucose Negative (Negative) Urine Ascorbic Acid * A (Negative) 06/14/18 06/14/18 Range/Units 14:53 14:53 WBC (3.5-10.8) 10^3/ul RBC (4.00-5.40) 10^6/ul Hgb (14.0-18.0) g/dl Hct (42-52) % MCV (80-94) fL MCH (27-31) pg MCHC (31-36) g/dl RDW (10.5-15) % Plt Count (150-450) 10^3/ul MPV (7.4-10.4) um3 Neut % (Auto) (38-83) % Lymph % (Auto) (25-47) % [place] % (Auto) (0-7) % Eos % (Auto) (0-6) % Baso % (Auto) (0-2) % Absolute Neuts (auto) (1.5-7.7) 10^3/ul Absolute Lymphs (auto) (1.0-4.8) 10^3/ul Absolute Monos (auto) (0-0.8) 10^3/ul Absolute Eos (auto) (0-0.6) 10^3/ul Absolute Basos (auto) (0-0.2) 10^3/ul Absolute Nucleated RBC 10^3/ul Nucleated RBC % ESR (0-40) mm/Hr INR (Anticoag Therapy) (0.77-1.02) APTT (26.0-36.3) seconds Sodium 134 L (135-145) mmol/L Potassium 4.1 (3.5-5.0) mmol/L Chloride 101 (101-111) mmol/L Carbon Dioxide 28 (22-32) mmol/L Anion Gap 5 (2-11) mmol/L BUN 26 H (6-24) mg/dL Creatinine 0.95 (0.67-1.17) mg/dL Est GFR ( Amer) 91.2 (>60) Est GFR (Non-Af Amer) 75.3 (>60) BUN/Creatinine Ratio 27.4 H (8-20) Glucose 106 H (70-100) mg/dL Lactic Acid 0.7 (0.5-2.0) mmol/L Calcium 8.8 (8.6-10.3) mg/dL Total Bilirubin 0.80 (0.2-1.0) mg/dL AST 31 (13-39) U/L ALT 26 (7-52) U/L Alkaline Phosphatase 55 (34-104) U/L Troponin I 0.01 (<0.04) ng/mL C-Reactive Protein 45.44 H (<8.01) mg/L Total Protein 6.6 (6.4-8.9) g/dL Albumin 3.8 (3.2-5.2) g/dL Globulin 2.8 (2-4) g/dL Albumin/Globulin Ratio 1.4 (1-3) Urine Color Urine Appearance Urine pH (5-9) Ur Specific [place] (1.010-1.030) Urine Protein (Negative) Urine Ketones (Negative) Urine Blood (Negative) Urine Nitrate (Negative) Urine Bilirubin (Negative) Urine Urobilinogen (Negative) Ur Leukocyte Esterase (Negative) Urine WBC (Auto) (Absent) Urine RBC (Auto) (Absent) Urine Bacteria (Absent) Urine Glucose (Negative) Urine Ascorbic Acid (Negative) Result Diagrams: 06/15/18 06:07 06/15/18 06:07 Lab Statement: Any lab studies that have been ordered have been reviewed, and results considered in the medical decision making process. - Radiology CXR Xray Interpretation: No Acute Changes Radiology Interpretation Completed By: Radiologist - No active cardiopulmonary disease is noted. This report was reviewed by ED physician. - CT Thoracic Spine CT CT Interpretation: Positive (See Comments) CT Interpretation Completed By: Radiologist - Degenerative disc disease at T10- T11. No fracture is noted. This report was reviewed by ED physician. Cervical Spine CT CT Interpretation: Positive (See Comments) CT Interpretation Completed By: Radiologist - IMPRESSION: 1. DEGENERATIVE DISC DISEASE AND OSTEOARTHRITIS. 2. THERE IS MULTILEVEL NEUROFORAMINAL NARROWING DESCRIBED ABOVE. THERE IS NO SIGNIFICANT CENTRAL CANAL STENOSIS. 3. NO ACUTE OSSEOUS INJURY TO THE CERVICAL SPINE. THIS REPORT WAS REVIEWED BY ED PHYSICIAN. 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 No acute intracranial pathology. This report was reviewed by ED physician. - EKG 1535 Cardiac Rate: NL - rate of 64 BPM. EKG Rhythm: Sinus Rhythm EKG Interpretation: borderline left axis dev and prolonged [place], ischemic t-wave in ant. leads Re-Evaluation - Re-Evaluation First Eval Re-Evaluation Time: 16:42 Comment: Discussed results of labs and tests with patient. Patient will be [place] [facility] [place]. Patient is agreeable with plan. Second Eval Re-Evaluation Time: 18:22 Comment: Patient wanted to further discuss plan for admission with Dr. Devlin. Patient is still agreeable with plan for admission. Neck Course/Dx - Course Assessment/Plan: Patient is a 87 y/o M w/ c/o neck and shoulder pain for he past 5 days. He was referred to ED by PCP. Pt says he has taken tylenol, ibuprofen, arthritis meds and nothing is helping. Pt says Sx are worse at night and he also has been sweating at night. On triage, pain is rated 3/10 and nothing is noted to aggravate/alleviate Sx. He denies chest pain. He denies presence of rashes but notes he has been working outside building a cabin with his son. He is unsure if he had fever. He states he measured his pulse and noted it jumped from 60s to 70-80s. He reports neck pain is aggravated by pain. He denies Hx of HTN and diabetes. He denies abdominal pain but notes PENA on and off for past few days as well. He is not photophobic, denies N/V. He notes he has been experiencing aches all over his body. Physical exam showed thoracic spine tenderness. CT, CXR, and EKG impressions above. During ED course, patient was given Reglan 10 mg IV ED ONCE ONE, fluids, Ultram 50 mg PO ED ONCE ONE. UA showed ascorbic acid present, 3+ urine RBC, trace WBC, trace urine ketones, urine protein 1+. No other abnormal labs noted. Dr. Garcia was consulted on patient's case at 16:25. He states he is unconcerned about patient. 16:40 -- patient's case was discussed with Dr. Lawrence and she will accept patient for admission [place] [facility] Plan was discussed with patient and he is agreeable. Patient diagnosed with viral syndrome and headache. - Diagnoses Provider Diagnoses: Viral syndrome, Headache - Physician Notifications Discussed Care Of Patient With: Caleb Garcia Time Discussed With Above Provider: 16:25 Instructed by Provider To: Other - Dr. Garcia was consulted on patient's case at 16:25. He states he is unconcerned about patient. 16:40 -- patient's case was discussed with Dr. Lawrence and she will accept patient for admission [place] [facility] Discharge - Sign-Out/Discharge Documenting (check all that apply): Patient Departure - admit - Discharge Plan Condition: Good Disposition: ADMITTED TO [facility] - Billing Disposition and Condition Condition: GOOD Disposition: Admitted to [facility] - Attestation Statements Document Initiated by Scribe: Yes Documenting Scribe: Giovanni Dietz Provider For Whom Scribe is Documenting (Include Credential): Kemi Devlin Scribe Attestation: Giovanni Godinez, scribed for Kemi Devlin on 06/15/18 at 1753. Scribe Documentation Reviewed: Yes Provider Attestation: The documentation as recorded by the scribe, Giovanni Dietz accurately reflects the service I personally performed and the decisions made by me, Kemi Devlin
[2018-06-14] MEDS: Acetaminophen TAB* 325 MG PO PRN (21:02)
[2018-06-14] MEDS: Heparin VIAL(*) 5000 UNITS/ML VIAL (FIVE THOUSAND) SUBCUT SCH (21:06)
--- NOTE | 2018-06-14 21:43 | HP ---
CC: Dr. Giovanni Min * ADMISSION HISTORY AND PHYSICAL: DATE OF ADMISSION: 06/14/18 PATIENT OF ATTENDING HOSPITALIST: Dr. Chelita Christine.* (DICTATED BY ASHTYN BRADLEY) PRIMARY CARE PHYSICIAN: Dr. Giovanni Min. CHIEF COMPLAINT: Neck and upper shoulder pain. HISTORY OF PRESENT ILLNESS: Mr. Gutierrez is an 87-year-old gentleman with past medical history significant for degenerative lumbar spondylosis, arthritis of the knee, esophageal stricture, coronary artery disease for which he is status post ND x2. He also has a history of hypertension, hyperlipidemia, and was recently admitted about a month ago to rule out acute coronary syndrome with negative workup. He presented to the emergency room today with 5 days history of intermittent neck and upper shoulder pain. The patient is somehow vague in his symptoms and it is not clear if the pain is worse with movement; however, he noticed no injury and no evidence of falling or hitting his head recently. The pain is usually located his posterior neck and upper shoulder at the trapezius areas, usually when he lays on his back; however, he has been able to move his neck freely and lift his shoulders up. Denies any weakness, numbness or any other associated symptoms. He denies any chest pain, shortness of breath , palpitation. He only describes occasional sweating episodes at night while he is asleep from being "overheated" usually resolved after he takes the covers off his body. He denies any dysuria, urinary complaints, fever or chills. He was evaluated in the emergency room and had a CT scan of the head, cervical spine, and thoracic spine that revealed evidence of an old subdural hematoma with no acute brain injury or concerns as well as evidence of degenerative disc disease in his C spine. The patient feels better after receiving pain medication in the emergency room. Given his symptoms, we were asked to see the patient for evaluation and to consider admission for observation overnight and pain control. PAST MEDICAL HISTORY: As mentioned above significant for degenerative lumbar spondylosis, degenerative arthritis, degenerative disk disease of the cervical and thoracic spine, history of esophageal stricture, coronary artery disease with history of ND x2, GERD, hyperlipidemia. PAST SURGICAL HISTORY: Significant for carpal tunnel release, debridement of an ulcer on the right foot, right inguinal hernia repair, cardiac catheterizations x2 back in 2004 with stent placement, and in 2010 with stent replaced, right total knee arthroplasty, repair of left hammertoe. CURRENT MEDICATIONS: His medications at home include: 1. Aspirin 81 mg p.o. daily. 2. Tart das capsule 1 capsule p.o. daily. 3. Vitamin D tablets 1000 units p.o. daily. 4. Glucosamine and chondroitin 1 tablet p.o. daily. 5. Claritin 10 mg p.o. daily. 6. Lovastatin 20 mg p.o. nightly. 7. Magnesium oxide 150 mg p.o. daily. 8. Multivitamin with minerals 1 tablet p.o. daily. 9. Protonix 40 mg p.o. daily. 10. Potassium supplement 20 mEq p.o. daily. 11. Zanaflex 2 mg p.o. q.h.s. 12. Nitroglycerin tablet 0.4 mg sublingual as needed for angina. ALLERGIES: He is allergic to CEFAZOLIN. FAMILY HISTORY: Reviewed and noncontributory. SOCIAL HISTORY: The patient lives at home with his . He is a former smoker , who was smoking in his 20s. He drinks about 1 beer most days. His son, Roger Gutierrez, will be his surrogate decision maker and he wishes to be a full code. REVIEW OF SYSTEMS: See HPI, otherwise a 12-point review of systems were examined and they were essentially negative. PHYSICAL EXAMINATION GENERAL: He is a healthy-appearing, elderly gentleman, appears comfortable and in no acute distress or discomfort at the time of admission. VITAL SIGNS: Reveal temperature of 98.9, pulse of 80, respirations of 16, O2 sat of 96% on room air, and blood pressure of 103/62. HEENT: Head is normocephalic, atraumatic. Sclerae anicteric. PERRLA. EOMs intact. Oropharynx is pink and moist. NECK: Supple. Trachea midline. No cervical adenopathy or thyromegaly. Passive motion of the neck revealed no tenderness bilaterally. There is no point tenderness along the cervical spine at midline. LUNGS: Clear to auscultation bilaterally. HEART: Regular rate and rhythm. Normal S1 and S2 without rubs, murmurs or gallops. BACK: With normal curvature and no CVA tenderness. There is no point tenderness along the lumbar or thoracic spine exam. There is minimal trapezius tenderness on palpation, but again there was no bony injury along the clavicle and/or along the scapular body. There is no ecchymosis, skin changes or any evidence of recent injury. ABDOMEN: Soft, nontender, and nondistended. There are no hernias, masses or hepatosplenomegaly. EXTREMITIES: Without cyanosis, clubbing or edema. RECTAL: Exam deferred at this time. NEUROLOGIC: He is alert, oriented, and cooperative. Tongue is midline. Handgrips equal bilaterally and sensation is intact throughout. LABORATORY WORKUP: CBC with white count 4,700, hemoglobin 16.1 and hematocrit of 45, and platelets of 152. His INR 0.93. Chemistry panel with sodium of 134 , potassium 4.1, chloride 101, CO2 of 28, BUN at 26, and creatinine of 0.9, glucose is 106. LFTs within normal limits. Troponin is 0.01. C-reactive protein elevated at 45.4. ACCESSORY DIAGNOSTIC DATA: The patient had multiple scans of the head, cervical spine, thoracic spine as well as chest x-ray. There was no acute findings and all the imaging was consistent with osteoarthritis and degenerative disk disease. There was also documented old subdural hematoma versus hygromas in his brain CT. There was no acute intracranial pathology. IMPRESSION: An 87-year-old gentleman with past medical history significant for degenerative joint disease, degenerative disk disease, hypertension, hyperlipidemia, and history of coronary artery disease, who presented to the emergency room with 5 days history of intermittent posterior neck and upper shoulder pain that is not related to any motion without any aberrant injury and appears to be likely musculoskeletal in origin from his known history of arthritis. ASSESSMENT AND PLAN: 1. Musculoskeletal pain/degenerative disk disease. The patient will be admitted as an observation to the medical floor. His pain appeared to be well controlled at this time and we will provide pain medicine as needed as well as muscle relaxant. He does not appear to have any neurological symptoms suggesting stroke like symptoms. His troponin has been normal and he experienced no significant finding on the chest x-ray or EKG. We will observe him overnight and likely to be discharged home tomorrow. 2. History of coronary artery disease. We will continue his aspirin, statin, and blood pressure medicine. 3. Hyperlipidemia. We will continue his statin therapy. 4. Code status. He is a full code. 5. DVT prophylaxis. He is at high risk and will have subcu heparin q.8 hours. 6. Disposition. Observation overnight for pain control. TIME SPENT: Approximately, 60 minutes spent admitting this patient with greater than 50% on taking history of and performing physical exam. I went on and discuss the case with my attending, Dr. Christine, who agreed to plan of care. ASHTYN BRADLEY [id number]/[facility] #: [id number] YUNIOR
[2018-06-14] MEDS: Losartan TAB* 25 MG PO SCH (22:38)
[2018-06-15] MEDS ORDERED: NS 0.9% 1000 ML* 500 ML IV SCH (01:00)
[2018-06-15] MEDS: Acetaminophen TAB* 325 MG PO PRN ×2 (01:12→05:53)
[2018-06-15] MEDS: Heparin VIAL(*) 5000 UNITS/ML VIAL (FIVE THOUSAND) SUBCUT SCH (05:54)
[2018-06-15 06:34] LABS: ABS Basophils 0 10^3/ul (0-0.2); ABS Eosinophils 0.1 10^3/ul (0-0.6); ABS Lymphocytes 1.2 10^3/ul (1.0-4.8); ABS Monocytes 0.6 10^3/ul (0-0.8); ABS Neutrophils 3.1 10^3/ul (1.5-7.7); ABS Nucleated RBC 0 10^3/ul; Hematocrit 42 % (42-52); Hemoglobin 14.5 g/dl (14.0-18.0); Lymphocyte % 24.6 % (25-47); Mean Corpuscular HGB Conc 34 g/dl (31-36); Mean Corpuscular Hemoglobin 31 pg (27-31); Mean Corpuscular Volume 91 fL (80-94); Nucleated Red Blood Cells % 0.2; Platelet Count 137 10^3/ul (150-450); Red Blood Count 4.65 10^6/ul (4.00-5.40); Red Cell Distribution Width 14 % (10.5-15)
[2018-06-15 06:55] LABS: EGFR Non-African American 88.1 (>60)
[2018-06-15] MEDS ORDERED: Morphine INJ* 2 MG/ML 1 ML SYRINGE (TWO MG - NEW SYRINGE VERSION) IV PRN (08:27)
[2018-06-15] MEDS ORDERED: Magnesium Oxide TAB* 400 MG PO SCH (09:00)
[2018-06-15] MEDS ORDERED: Aspirin EC TAB* 81 MG TAB.EC PO SCH (09:00)
[2018-06-15] MEDS ORDERED: Cetirizine* 10 MG TAB PO SCH (09:00)
[2018-06-15] MEDS ORDERED: Potassium Chlor TAB* 20 MEQ TAB.ER PO SCH (09:00)
[2018-06-15] MEDS: Losartan TAB* 25 MG PO SCH (09:00)
[2018-06-15] MEDS ORDERED: Cholecalciferol TAB* 1000 UNITS PO SCH (09:00)
[2018-06-15] MEDS ORDERED: Omeprazole CAP* 20 MG PO SCH (09:00)
[2018-06-15 12:26] VITALS: BP 100/55
--- NOTE | 2018-06-15 16:32 | DS ---
CC: Dr. Min; Dr. Murray De Luna from Cardiology * DISCHARGE SUMMARY: DATE OF ADMISSION: 06/14/18 DATE OF DISCHARGE: 06/15/18 PRIMARY CARE PROVIDER: Dr. Min. DISCHARGE DIAGNOSIS: An episode of cervical myalgias and headache coinciding with night sweats, sore throat and feeling weak for a few days. At this point, the differential at discharge includes possible Lyme disease versus epidemic cervical myalgia. MEDICATIONS AT DISCHARGE: Include: 1. Zanaflex 2 mg q.p.m. 2. Potassium 99 mg q.a.m. 3. Protonix 40 mg daily. 4. Nitroglycerin on a p.r.n. basis. 5. Multivitamin 1 tablet daily. 6. Magnesium oxide 250 mg daily. 7. Mevacor 20 mg daily. 8. Loratadine 10 mg daily. 9. Glucosamine 1 capsule daily. 10. Vitamin D3 1000 units daily. 11. Sour das celery grape seed dietary supplement 1 capsule daily. 12. Aspirin 81 mg daily. 13. Doxycycline 100 mg b.i.d. for a total of 2 weeks as the patient's Lyme titers positive in 2 or 3 days. The titers are pending at this point. If the patient Lyme titers negative, the patient can discontinue doxycycline. LABORATORY DATA AND STUDIES PERFORMED DURING THE HOSPITAL STAY: Included on , white blood cell count of 5.0, hemoglobin of 14.5, hematocrit of 42, and platelets of 137. Sodium was 136, potassium 4.8, chloride 103, carbon dioxide 30, BUN 18, creatinine 0.83. Total CPK was 43. Troponin of 0.01. C-reactive protein of 45.4. Urinalysis showed +3 rbc's, absent bacteria, negative for nitrite, negative for esterase. 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 No acute intracranial pathology." Laboratory data pending at the time of dictation include Lyme titers and blood cultures. HOSPITALIZATION COURSE: Tony Gutierrez is an 87-year-old male who has history of heart disease and who was hospitalized a month ago for chest pain with low probability cardiac stress test at that point. 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 He stated that for the past 5 days he has been having issues with rather severe back of the neck pain and bilateral shoulder pain as well as headache in the occipital area. He noted night sweats and feeling generalized weakness as well as sore throat. The patient also mentions that his son "followed with his symptoms." His son started developing similar symptoms 3 days later. The patient had CT of thoracic and cervical spine obtained at admission, which showed degenerative changes, but no central spinal stenosis or any other acute changes that would necessitate Neurosurgery evaluation. The patient's laboratory data was grossly abnormal with sedimentation rate of 14 and C- reactive protein was mildly elevated at 45. The CT of the brain questioned hygromas versus chronic subdurals. By the time of discharge, the patient had no pain, no headache, and his shoulder pain resolved. He had no neck stiffness on evaluation at discharge. He had used Tylenol throughout his hospital stay with good results. At this point, it is possible that the patient contracted Lyme disease when he was working outdoors and coincidentally so his son did also. It is also possible that both the patient and his son have epidemic cervical myalgia, which is likely due to adenovirus infection. Nevertheless, the patient is back to his baseline and he is going to be discharged home with recommendation to follow up with Dr. Min once the Lyme titer results come back mid this week. Please also note that the patient stated that he was started on losartan by his primary care provider approximately 2 weeks ago. The patient's blood pressures had been in the 80s at night and the patient also noted that he was tired and weak after the medication was started. I suspect that he will not need the losartan and some of these symptoms could be related to symptomatic hypotension. At the time of discharge, the patient's blood pressure was systolic 99 and he is asymptomatic. His losartan is going to be discontinued. PHYSICAL EXAMINATION: At the time of discharge, blood pressure of 100/55, heart rate of 59 and regular, respiratory rate 18, oxygen saturation 96% on room air, temperature 98.1. General: The patient is a pleasant 87-year-old male, who is in no acute distress. Alert, awake, and oriented x3. HEENT: Head : Atraumatic, normocephalic. Eyes: Pupils are equal, reactive to light and accommodation. Oropharynx is clear. Mucosa moist. Neck: Supple. No JVD. No bruits bilaterally. Cardiovascular: Regular rate and rhythm. No murmur. Respiratory: Clear to auscultation bilaterally. Abdomen: Soft, nontender. Bowel sounds are present in all 4 quadrants. Extremities: There is no edema. Pulses are +2 bilaterally. No clubbing or cyanosis. On evaluation of the skin, no ecchymotic areas or rashes noted. Neuro Evaluation: Speech is clear. Cranial nerves II through XII are grossly intact. Motor strength is 5/5 bilaterally. There was no neck stiffness on evaluation. Gait is steady. Psychiatric Evaluation: Oriented x3 with no evidence of anxiety or depression. Please note that this is a short summary of the patient's hospitalization. Please refer to further medical records for details. TIME SPENT: Approximately 35 minutes were spent on the patient's discharge. [id number] #: [id number] YUNIOR
== END 2018-06-15 13:30 | disposition home or self-care (01) ==
LOC: ED 12:32 → MED 17:14
PROVIDERS: ADMIT Internal Medicine; ATTEND Internal Medicine
DX: M50.30 Other cervical disc degeneration, unspecified cervical region (principal); M51.34 Other intervertebral disc degeneration, thoracic region; M54.2 Cervicalgia; R51 Headache; J02.9 Acute pharyngitis, unspecified; R61 Generalized hyperhidrosis; R53.1 Weakness; I71.4 Abdominal aortic aneurysm, without rupture; I25.119 Atherosclerotic heart disease of native coronary artery with unspecified angina pectoris; I25.2 Old myocardial infarction; K21.9 Gastro-esophageal reflux disease without esophagitis; E78.5 Hyperlipidemia, unspecified; Z87.891 Personal history of nicotine dependence; Z79.899 Other long term (current) drug therapy; Z79.82 Long term (current) use of aspirin; Z88.1 Allergy status to other antibiotic agents; R94.31 Abnormal electrocardiogram [ECG] [EKG]; M25.512 Pain in left shoulder; M25.511 Pain in right shoulder; M79.1 Myalgia
CPT/HCPCS: 36415; 70450; 71045; 72125; 72128; 80048; 80053; 81003; 81015; 82550; 83605; 84484; 85025; 85610; 85652; 85730; 86140; 86618; 87040; 87086; 93005; 96372; 96374; 99283; A9270-GY; G0378; J1644; J2765